=== PATIENT | male | born 1985 | race Two or more races ===

== ENCOUNTER 2016-07-03 15:43 | Emergency (ER) | payer MEDICAID ==
[~2016-07-03] VITALS: Ht 170.2 cm; Wt 74.8 kg
[2016-07-03 15:45] VITALS: BP 116/64
[2016-07-03] MEDS ORDERED: CEPHALEXIN MONOHYDRATE 500 MG CAPSULE PO ONE ×2 (17:00→17:07)
[2016-07-03] MEDS ORDERED: SULFAMETH/TRIMETH 800/160 MG 1 UDTAB TABLET PO ONE ×2 (17:00→17:07)
--- NOTE | 2016-07-03 17:12 | NUR ---
po meds given as ordered
[2016-07-03] MEDS ORDERED: HYDROCODONE/APAP 5/325MG 1 EACH TABLET ONE (17:25)
[2016-07-03] MEDS ORDERED: IBUPROFEN 600 MG TABLET PO ONE ×2 (17:25→17:30)
[2016-07-03] MEDS ORDERED: HYDROCODONE/APAP 5/325MG 1 EACH TABLET PO ONE (17:30)
[2016-07-03] MEDS ORDERED: MORPHINE SULFATE INJ 2 MG/ML DISP.SYRIN IM ONE (18:00)
[2016-07-03] MEDS ORDERED: MORPHINE SULFATE INJ 4 MG/ML DISP.SYRIN ONE (18:09)
--- NOTE | 2016-07-03 18:32 | NUR ---
Patient discharged to home in stable condition. Written and verbal after care instructions given. Patient verbalizes understanding of instruction.
--- NOTE | 2016-07-03 18:33 | NUR ---
THE PATIENT WAS NOT HAPPY WITH THE CARE; HE " FEELS LIKE BLOOD WORK SHOULD HAVE BEEN DONE" AND THAT WE DO NOT DO ENOUGH FOR HIM". THE PATIENT'S VITAL SIGNS WERE STABLE AND THE CASE WAS DISCUSSED WITH ADRIENNE DAVIS; STATES THAT THE PATIENT DOES NOT NEED ANY LAB WORKS AND THAT PO ANTIBIOTICS ARE APPROPRIATE. Patient discharged to home in stable condition. Written and verbal after care instructions given. Patient verbalizes understanding of instruction.
== END 2016-07-03 18:37 | disposition home or self-care (01) ==
LOC: ER 15:45
DX: L03.116 Cellulitis of left lower limb (principal); M04.1 Periodic fever syndromes; F11.90 Opioid use, unspecified, uncomplicated
CPT/HCPCS: 93971-TC; A4606; J2270; Z7610